=== PATIENT | female | born 1960 | race Caucasian/White ===

== ENCOUNTER 2018-07-20 07:11 | Outpatient (CLI) | payer MEDICAID, SELFPAY ==
[2018-07-20 07:52] LABS: HGB 14.2 g/dL (12.0-15.5); Mean Corp. HGB Concentration 32.3 g/dL (32.0-36.0); Mean Corpuscular Hemoglobin 29.4 pg (27.0-33.0); Mean Corpuscular Volume 91.1 fL (80-95); Mean Platelet Volume 10.6 fL (8.0-11.0); Platelet Count 256 x1000/uL (130-400); RBC 4.83 m/cumm (4.00-5.20); RBC Distribution Width 12.8 % (11.7-14.6); White Blood Cell Count 3.94 k/cumm (4.4-10.8)
[2018-07-20 08:38] LABS: ALT 28 U/L (12-78); AST 14 U/L (15-37); Albumin 4.1 g/dL (3.4-5.0); Alkaline Phosphatase 107 U/L (46-116); Anion Gap 6.6 mmol/L (3-11); BUN 11 mg/dL (7-18); Bilirubin, Total 0.8 mg/dL (0.2-1.0); CO2 31.4 mmol/L (21.0-32.0); CREATININE 0.59 mg/dL (0.55-1.02); Chloride 104 mmol/L (98-107); Glucose 101 mg/dL (70-100); Potassium 4.2 mmol/L (3.5-5.1); Sodium 142 mmol/L (136-145); TSH (W/Ref FT4) 2.02 uIU/mL (0.358-3.74); Total Protein 7.2 g/dL (6.4-8.2)
[2018-07-20 08:51] LABS: Cholesterol 236 mg/dL (50-200); HDL Cholesterol 68 mg/dL (40-60); LDL CHOLESTEROL 150 mg/dL (<100); Triglyceride 105 mg/dL (30-150)
[2018-07-20 09:44] LABS: ESR 12 MM/HR (0-30)
[2018-07-23 09:55] LABS: Rheumatoid Factor <8 IU/mL (<12.5)
[2018-07-23 12:49] LABS: IgA 98 mg/dL (85-499); Interpretation SEE COMMENTS; Tissue Transglutaminase IgA <1.2 U/mL (<4.0)
[2018-07-23 14:28] LABS: ANA Interpretation Positive (NEGAT)
== END 2018-07-20 07:31 ==
PROVIDERS: PCP Nurse Practitioner; Visit Provider Nurse Practitioner
DX: K90.49 Malabsorption due to intolerance, not elsewhere classified (principal); M25.40 Effusion, unspecified joint; M25.50 Pain in unspecified joint; R52 Pain, unspecified; R53.83 Other fatigue; Z13.220 Encounter for screening for lipoid disorders; I10 Essential (primary) hypertension
CPT/HCPCS: 36415; 80053; 80061; 82784; 83516; 83721; 85027; 85652; 84443; 86038; 86140; 86431

== ENCOUNTER 2020-12-04 01:41 | Outpatient (CLI) | payer MEDICAID, SELFPAY ==
[2020-12-04 12:27] LABS: HCT 41.5 % (36.0-46.0); HGB 13.3 g/dL (11.2-15.7); MCH 29.6 pg (27.0-33.0); MCV 92.4 fL (80-95); Platelet Count 274 10^3/uL (130-400); RBC 4.49 10^6/uL (3.93-5.22); RDW 12.6 % (11.7-14.6); RDW-SD 43.1 fL; WBC 4.73 10^3/uL (4.4-10.8)
[2020-12-04 12:36] LABS: Hemoglobin A1C 5.9 % (<5.7)
[2020-12-04 14:46] LABS: ALT 29 U/L (14-59); AST 7 U/L (15-37); Alkaline Phosphatase 119 U/L (46-116); Anion Gap 7.4 mmol/L (3-11); BUN 10 mg/dL (7-18); Bilirubin, Total 0.6 mg/dL (0.2-1.0); CO2 28.6 mmol/L (21.0-32.0); CREATININE 0.5 mg/dL (0.55-1.02); Calcium 9.1 mg/dL (8.5-10.1); Calculated LDL 154 mg/dL (<100); Chloride 107 mmol/L (98-107); Cholesterol 227 mg/dL (<200); Glucose 79 mg/dL (74-106); HDL Cholesterol 58 mg/dL (40-60); Potassium 4.6 mmol/L (3.5-5.1); Sodium 143 mmol/L (136-145); Total Protein 6.8 g/dL (6.4-8.2); Triglyceride 79 mg/dL (<150)
== END 2020-12-04 01:42 | disposition home or self-care (01) ==
LOC: LBO 01:41
PROVIDERS: PCP Nurse Practitioner; Visit Provider Nurse Practitioner
DX: E11.9 Type 2 diabetes mellitus without complications (principal); E78.5 Hyperlipidemia, unspecified; E66.3 Overweight
CPT/HCPCS: 36415; 80053; 80061; 85027; 83036

== ENCOUNTER 2020-12-04 13:37 | Outpatient (REF) | payer MEDICAID, SELFPAY ==
--- NOTE | 2020-12-04 13:30 | PAPFT_PTH ---
PATIENT: Ellen Deng LOC: [facility] U#:[id number] AGE/SX: 60/F ROOM: RE12/04/[address]: Yasmeen Cazares : 1960 BED: DIS: 12/04/2020 SPEC #: [id number] RECD: 12/04/20 15:35 STATUS: GILLJacqueline GILBERT #: [id number] SCOTT: 12/04/20 13:[address]: Yasmeen Cazares DEPT: [facility] Cytology RECD BY: Aniyah Fraser ENTERED: 12/04/20 15:36 SP TYPE: PAPFT BRISEYDA DR: Tiffanie Yoo APRN Tissues: 1 - CX/ENDOCX FOR PAP SMEARS Procedures: PAP THIN PREP/UVM Screening HPV DNA PROBE Comments: [id number]
== END 2020-12-04 13:38 | disposition home or self-care (01) ==
LOC: LBN 13:37
PROVIDERS: PCP Nurse Practitioner; Visit Provider Obstetrics & Gynecology Gynecology
DX: Z12.4 Encounter for screening for malignant neoplasm of cervix (principal); Z11.51 Encounter for screening for human papillomavirus (HPV); Z01.419 Encounter for gynecological examination (general) (routine) without abnormal findings
CPT/HCPCS: 88142; 87624

== ENCOUNTER 2020-12-31 01:50 | Outpatient (CLI) | payer MEDICAID, SELFPAY ==
--- NOTE | 2020-12-31 07:30 | DI.MAMMO_ITS ---
Exam(s) MAMMO SCREENING EXAM: MAMMO SCREENING CLINICAL HISTORY: screening TECHNIQUE: Mammograms were interpreted according to the usual protocol including computer analysis w [employer] CAD system, tomosynthesis and C-view imaging. COMPARISON: FINDINGS: The breasts are of moderate density with fairly symmetrical distribution of fibroglandular tissue. N o dominant mass or clumped microcalcification is identified in either breast. The current examinatio n is compared with previous examination March 2013 and there has been no gross interval change in a ppearance in comparison with the prior study. IMPRESSION: No specific evidence of malignancy at this time. Routine screening examinations are suggested at yea rly intervals in this age group according to the ACS ACR guidelines. BI-RADS Category 1 - Negative Breast Density - Category B - Scattered areas of fibroglandular density
== END 2020-12-31 02:10 ==
PROVIDERS: PCP Nurse Practitioner; Visit Provider Obstetrics & Gynecology Gynecology
DX: Z12.31 Encounter for screening mammogram for malignant neoplasm of breast (principal)
CPT/HCPCS: 77063; 77067

== ENCOUNTER 2021-08-18 13:56 | Outpatient (CLI) | payer MEDICAID, SELFPAY ==
--- NOTE | 2021-08-18 13:45 | RT.EKG_ITS ---
APPROVED REPORT Exam: Resting ECG Reason for Exam: chest pain Patient Location: O HR:71 bpm ECG Measurements Heart Rate 71 AXIS AK 164 P 47 QRSd 86 QRS -44 QT 391 T 42 QTc 425 Conclusion Sinus rhythm...normal P axis, V-rate 60- 99 Left axis
== END 2021-08-18 13:57 | disposition home or self-care (01) ==
LOC: DI.KIM 13:56
PROVIDERS: PCP Nurse Practitioner; Visit Provider Nurse Practitioner
DX: R07.9 Chest pain, unspecified (principal); R73.09 Other abnormal glucose
CPT/HCPCS: 93010

== ENCOUNTER → 2021-10-13 01:53 | Outpatient (CLI) | payer MEDICAID, SELFPAY ==
--- NOTE | 2021-10-13 10:28 | DI.US_ITS ---
APPROVED REPORT EXAM: Comprehensive 2D, Doppler, and color-flow Echocardiogram Patient Location: Out-Patient Surgical Instrument Repair Specialist: Kierra Mccarthy RDCS (AE) Indications: Abnormal EKG, Chest pain, DALEY Other Information Study Quality: Adequate Conclusion Normal left ventricular wall thickness and chamber size. Estimated ejection fraction is 60%. Wall m otion is normal Normal right ventricular size and systolic function Both atria are normal in size There is no structural or hemodynamically significant valvular disease Estimated right ventricular systolic pressure is 25 mmHg Wall motion Left Ventricle The left ventricle is normal size. The left ventricular systolic function is normal. The left ventric ular ejection fraction is within the normal range. There is normal left ventricular wall thickness. T here is normal LV segmental wall motion. There is no ventricular septal defect visualized. LVEF is 60 %. Right Ventricle The right ventricle is normal size. The right ventricular systolic function is normal. The RVSP is 25 .4mmHg. Atria The left atrium size is normal. The right atrium size is normal. The interatrial septum is intact wit h no evidence for an atrial septal defect. Aortic Valve The aortic valve is normal in structure. Aortic valve is trileaflet. There is no aortic valvular sten osis. Trivial aortic regurgitation is present. Mitral Valve The mitral valve is normal in structure. No evidence of mitral valve stenosis. Trace to mild mitral r egurgitation. Tricuspid Valve The tricuspid valve is normal in structure. There is no tricuspid valve stenosis. Trace tricuspid reg urgitation. Pulmonic Valve The pulmonary valve is normal in structure. There is no pulmonic valvular stenosis. There is no pulmo jeff valvular regurgitation. Great Vessels The aortic root is normal in size. The ascending aorta is normal in size. Aortic arch is normal in ca liber. IVC is normal in size and collapses >50% with inspiration. Pericardium There is no pericardial effusion. 2D Dimensions IVSD d PLAX 0.84 cm F: 0.6-1.0 LV Vol A2C d MOD 92.2 mL LVPW d PLAX 0.84 cm F: 0.6 - 1.0 LV Vol A4C d MOD 89.8 mL LVID d PLAX 4.40 cm F: 3.8 - 5.2 LA vol/ BSA A2C s A-L 28.2 mL/m2 LVDs 2.90 cm F: 2.2 - 3.5 LA vol/ BSA A4C s A-L 18.7 mL/m2 Ao Root d 2.86 cm F: 2.7 - 3.3 LA Vol/ BSA Biplane s A-L 23.5 mL/m2 RA Area A4C 16.00 cm2 LA Area A4C s MOD 14.41 cm2 RA Vol/ BSA A4C s A-L 22.1 mL/m2 LA Area A2C s MOD 18.11 cm2 Ao Asc Diam d 3.31 cm F: 2.3 - 3.1 LV EF A4C MOD 60.9 % LV EF Teichholz 61.7 % LV EF A2C MOD 60.3 % LVEF (Mcgill's) 59.99 % F: 54 - 74 LV EF Biplane MOD 60.0 % LV Volume 69.29 mL F: 46 - 106 SV 55.31 mL LV Volume Index 34.99 mL/m2 F: 29 - 61 SV Index 27.83 mL/m2 LV Vol Biplane MOD 92.2 mL FS 32.95 % M-Mode TAPSE 2.20 cm (M/F) >1.7 LV Diastology MV E' medial 0.065 (>0.07 m/s) E/A Ratio 0.9 LV E/e MED 12.10 (<14) MV E Vmax 0.79 (0.4-1.3 m/s) MV E' lateral 0.081 (>0.1 m/s) MV A Vmax 0.85 (0.4-1.3 m/s) LV E/e LAT 9.70 (<14) MV E/A Ratio 0.92 MV E/E' medial 12.13 MV E/E' lateral 9.71 Aortic Valve LVOT Area 3.68 cm2 AoV Area Vmax 2.66 cm2 LVOT Vmax 1.11 m/s AoV Area/ BSA (Vmax) 1.34 cm2/m2 LVOT Mean Reji. 0.71 m/s LIZANDRO Mean Reji. 2.35 cm2 LVOT Peak Grad 4.9 mmHg LIZANDRO Mean Reji. Index 1.18 cm2/m2 LVOT Mean Grad 2.4 mmHg LVOT VTI 0.242 m LVOT Diam s 2.15 cm AoV Vmax 1.53 m/s Velocity Ratio 0.72 AoV Mean Reji. 1.10 m/s AoV Peak Grad 9.4 mmHg LVOT SV 89.07 mL AoV Mean Grad 5.3 mmHg AoV VTI 0.331 m AoV Area VTI 2.69 cm2 AoV Area/ BSA (VTI) 1.35 cm/m2 Mitral Valve MV DT 269 (160-240 msec) MV PHT 78 msec MV Area PHT 2.82 cm2 MV VTI 0.351 m MV Area VTI 2.54 (4.0-6.0 cm2) Pulmonary Valve PV Vmax 0.88 (0.5-1.5 m/s) RVOT Peak Gr. 0.90 mmHg PV Peak Grad 3.1 mmHg RVOT Mean Gr. 0.50 mmHg PV Mean Grad 1.7 mmHg RVOT VTI 0.108 m PV VTI 0.185 m RVOT Vmax 0.47 m/s Tricuspid Valve TR Peak Grad 22.3 mmHg TR Vmax 2.37 m/s RA Pressure 3.00 mmHg RVSP (TR) 25.4 mmHg
== END ==
PROVIDERS: PCP Nurse Practitioner; Visit Provider Nurse Practitioner
DX: R06.09 Other forms of dyspnea (principal); R07.89 Other chest pain; R94.31 Abnormal electrocardiogram [ECG] [EKG]
CPT/HCPCS: 93306

== ENCOUNTER 2022-08-11 15:27 | Outpatient (CLI) | payer MEDICAID, SELFPAY ==
[2022-08-11 15:44] LABS: Absolute Basophil Count 0.03 10^3/uL (0.0-0.2); Absolute Lymphocyte Count 2.59 10^3/uL (1.2-3.4); Absolute Monocyte Count 0.53 10^3/uL (0.1-0.8); Absolute Neutrophil Count 2.68 10^3/uL (1.2-6.7); Basophils % 0.5; Eosinophils % 1.7; HCT 41.8 % (36.0-46.0); HGB 13.9 g/dL (11.2-15.7); Lymphocytes % 43.7; MCH 30.5 pg (27.0-33.0); MCHC 33.3 % (32.0-36.0); MCV 92 fL (80-95); MPV 10.3 fL (8.0-11.0); Monocytes % 8.9; Neutrophils % 45.2; Platelet Count 278 10^3/uL (130-400); RBC 4.56 10^6/uL (3.93-5.22); RDW 12.5 % (11.7-14.6); RDW-SD 41.8 fL; WBC 5.93 10^3/uL (4.4-10.8)
[2022-08-11 16:25] LABS: ALT 30 U/L (14-59); AST 15 U/L (15-37); Alkaline Phosphatase 117 U/L (46-116); Anion Gap 9.1 mmol/L (3-11); BUN 16 mg/dL (7-18); Bilirubin, Total 0.5 mg/dL (0.2-1.0); CO2 29.9 mmol/L (21.0-32.0); CREATININE 0.7 mg/dL (0.55-1.02); Calcium 9.6 mg/dL (8.5-10.1); Chloride 104 mmol/L (98-107); Estimated GFR 97.72 (mL/min/1.73m2); Glucose 105 mg/dL (74-106); Lipase 29 U/L (16-77); Potassium 3.8 mmol/L (3.5-5.1); Sodium 143 mmol/L (136-145); Total Protein 7.3 g/dL (6.4-8.2)
[2022-08-11 16:51] LABS: Calculated LDL 119 mg/dL (<100); Cholesterol 207 mg/dL (<200); HDL Cholesterol 73 mg/dL (40-60); Triglyceride 76 mg/dL (<150)
== END 2022-08-11 15:28 | disposition home or self-care (01) ==
LOC: LBO 15:29
PROVIDERS: PCP Nurse Practitioner; Visit Provider Nurse Practitioner
DX: E78.5 Hyperlipidemia, unspecified (principal); R10.9 Unspecified abdominal pain
CPT/HCPCS: 36415; 80053; 80061; 83690; 85025

== ENCOUNTER 2022-08-23 01:59 | Outpatient (CLI) | payer MEDICAID, SELFPAY ==
--- NOTE | 2022-08-23 07:15 | DI.US_ITS ---
Exam(s) US ABDOMEN EXAM: US ABDOMEN CLINICAL HISTORY: LUQ pain intermittent for a month or so,R10.12 TECHNIQUE: Ultrasound abdomen performed using standard protocol. COMPARISON: US RENAL ULTRASOUND(P) {[id number]} from 08/15/2014 FINDINGS: ABDOMINAL AORTA AND IVC: Visualized portions normal caliber. PANCREAS: Normal where visualized. LIVER: There is increased echogenicity of the liver. The liver measures 17 cm long. Hepatopedal josh w in the Portal Vein. GALLBLADDER:Status post cholecystectomy. BILIARY SYSTEM: Common bile duct could not be visualized due to overlying bowel gas. No intrahepatic biliary ductal dilation. KIDNEYS: Kidneys are symmetric in size. No evidence of renal calculi. No evidence of hydronephrosis. No renal mass or cyst identified. SPLEEN: Not enlarged. ASCITES: None seen. IMPRESSION: 1. Examination limited by overlying bowel gas. 2. Fatty infiltration of the liver. 3. Status post cholecystectomy. DATA REPOSITORY:
== END 2022-08-23 02:19 ==
LOC: DI 01:59
PROVIDERS: PCP Nurse Practitioner; Visit Provider Nurse Practitioner
DX: K76.0 Fatty (change of) liver, not elsewhere classified (principal); K91.5 Postcholecystectomy syndrome; R10.12 Left upper quadrant pain
CPT/HCPCS: 76700

== ENCOUNTER 2024-02-28 14:10 | Outpatient (CLI) | payer BC, SELFPAY ==
[2024-02-28 14:48] LABS: ALT 15 U/L (14-59); AST 14 U/L (15-37); Albumin 4.2 g/dL (3.4-5.0); Alkaline Phosphatase 101 U/L (46-116); BUN 10 mg/dL (7-18); Bilirubin, Total 0.81 mg/dL (0.2-1.0); CREATININE 0.6 mg/dL (0.55-1.02); Calcium 9.3 mg/dL (8.5-10.1); Calculated LDL 107 mg/dL (<100); Chloride 108 mmol/L (98-107); Cholesterol 197 mg/dL (<200); Estimated GFR 100.17 (mL/min/1.73m2); Glucose 90 mg/dL (74-106); HDL Cholesterol 78 mg/dL (40-60); Sodium 145 mmol/L (136-145); TSH (W/Ref FT4) 1.93 uIU/mL (0.36-3.74); Total Protein 7.1 g/dL (6.4-8.2); Triglyceride 61 mg/dL (<150)
== END 2024-02-28 14:11 | disposition home or self-care (01) ==
LOC: LBO 14:18
PROVIDERS: PCP Nurse Practitioner; Visit Provider Nurse Practitioner
DX: K76.0 Fatty (change of) liver, not elsewhere classified (principal); E78.5 Hyperlipidemia, unspecified
CPT/HCPCS: 36415; 80053; 80061; 84443